=== PATIENT | male | born 2000 | race African-American/Black ===

== ENCOUNTER 2020-06-01 07:30 | Emergency (ER) | payer SELFPAY ==
[~2020-06-01] VITALS: Ht 182.9 cm; Wt 68.0 kg
[2020-06-01 08:12] LABS: CLARITY URINE CLEAR (CLEAR); COLOR URINE YELLOW (YELLOW); KETONES URINE NEGATIVE (NEGATIVE); LEUKOCYTE ESTERASE URINE NEGATIVE (NEGATIVE); NITRITE URINE NEGATIVE (NEGATIVE); OCCULT BLOOD URINE NEGATIVE (NEGATIVE); PROTEIN URINE NEGATIVE (NEGATIVE)
[2020-06-01 09:11] VITALS: BP 122/75
[2020-06-02 13:06] LABS: HIV SCREEN 4G Non Reactive (Non Reactive)
[2020-06-05 04:10] LABS: HSV 1 & 2 AB IGM <0.91 Ratio (0.00-0.90)
== END 2020-06-01 09:12 | disposition home or self-care (01) ==
LOC: ER 08:07
DX: Z20.2 Contact with and (suspected) exposure to infections with a predominantly sexual mode of transmission (principal)
CPT/HCPCS: 81003; 86592; 86694; 86695; 86696; 87389; 99283